=== PATIENT | female | born 1990 | race Caucasian/White ===

== ENCOUNTER 2022-08-21 22:37 | Day surgery (SDC) | payer OTHER ==
[2022-08-21 22:59] VITALS: BMI 39.1
== END 2022-08-22 01:18 | disposition home or self-care (01) ==
LOC: CSHLD/OP 22:37
PROVIDERS: ATTEND Family Medicine
DX: O47.1 False labor at or after 37 completed weeks of gestation (principal); Z79.899 Other long term (current) drug therapy; Z88.8 Allergy status to other drugs, medicaments and biological substances; Z3A.38 38 weeks gestation of pregnancy
CPT/HCPCS: 99283

== ENCOUNTER 2022-08-23 08:44 | Inpatient (IN) | payer OTHER ==
[~2022-08-23 08:44] MED LIST: Bupivacaine 0.25% HCL 30 ML VIAL ONE
[2022-08-23] MEDS ORDERED: Carboprost 250 MCG/ML AMP IM PRN (09:56)
[2022-08-23] MEDS ORDERED: HYDROcodone/Acetaminophen 5/325 mg Tablet PO PRN ×3 (09:56→20:50)
[2022-08-23] MEDS ORDERED: Misoprostol 200 MCG TAB PR PRN (09:56)
[2022-08-23] MEDS ORDERED: Methylergonovine 0.2 MG/ML VIAL IM PRN (09:56)
[2022-08-23] MEDS ORDERED: Ibuprofen 800 MG TAB PO PRN (09:56)
[2022-08-23] MEDS ORDERED: Diphenoxylate HCl/Atropine Tablet PO PRN (09:56)
[2022-08-23] MEDS ORDERED: hydrALAZINE 20 MG/ML VIAL SLOW IVP PRN ×2 (09:56→20:50)
[2022-08-23] MEDS ORDERED: Promethazine HCl 25 MG/ML VIAL IM PRN ×3 (09:56→20:50)
[2022-08-23] MEDS ORDERED: Butorphanol Tartrate 1 MG/ML VIAL SLOW IVP PRN (09:56)
[2022-08-23] MEDS ORDERED: Lidocaine 1% (PF) 30 ML VIAL SC PRN (09:56)
[2022-08-23] MEDS ORDERED: Acetaminophen 500 MG TAB PO PRN (09:56)
[2022-08-23] MEDS ORDERED: Ondansetron PF 4 MG/2 ML Vial IVP PRN ×3 (09:56→20:50)
[2022-08-23] MEDS ORDERED: NS w/ Oxytocin 30 units 500 ML IV SCH ×3 (10:00→20:50)
[2022-08-23 10:29] VITALS: BMI 39.1
[2022-08-23] MEDS: Lactated Ringer's 1,000 ML IV SCH ×3 (10:39→22:05)
[2022-08-23 11:11] LABS: Hemoglobin 11.4 g/dL (12.0-15.5); Mean Corpuscular HGB CONC 33.5 g/dL (32.0-36.0); Mean Corpuscular Hemoglobin 28.1 pg (27.0-33.0); Mean Platelet Volume 10.1 fl (7.4-10.4); Platelet Count 356 10x3/uL (150-450); RBC Distribution Width 13.2 % (11.5-14.5); Red Blood Cell (RBC) Count 4.05 10x6/uL (3.90-5.03); White Blood Cell (WBC) Count 21.1 10x3/uL (3.5-10.5)
[2022-08-23] MEDS ORDERED: Fentanyl 2 mcg/Bup 0.1% Cadd 100 ML ONE ×2 (11:26→17:37)
[2022-08-23] MEDS: Fentanyl 2 mcg/Bupivacaine 0.1% Cassette 100 ML EPIDURAL SCH ×2 (11:50→17:38)
[2022-08-23] MEDS ORDERED: diphenhydrAMINE 50 MG/ML VIAL IVP PRN (11:51)
[2022-08-23] MEDS ORDERED: Acetaminophen 325 MG TAB PO PRN (11:51)
[2022-08-23] MEDS ORDERED: Naloxone HCl 0.4 mg/ml Vial IVP PRN ×2 (11:51)
[2022-08-23] MEDS ORDERED: ePHEDrine Sulfate 50 MG/10 ML VIAL SLOW IVP PRN (11:51)
[2022-08-23] MEDS ORDERED: Moisturizing Cream (Eucerin) 113 GM JAR TOP PRN (11:51)
[2022-08-23] MEDS ORDERED: Lactated Ringer's 500 ML IV PRN (11:51)
[2022-08-23 11:57] LABS: SARS-CoV-2 NAA Rapid Test Not Detected (NotDetected)
[2022-08-23 11:59] LABS: HBSAg Index 0.14 S/CO (0-0.99); Hep B Surf Ag Non-Reactive S/CO (NonReactive)
[2022-08-23] MEDS ORDERED: Communication Order-Pharmacy FS SCH (12:00)
[2022-08-23 12:04] LABS: Syphilis Antibody Nonreactive (Nonreactive); Syphilis Antibody Index 0.11 S/CO (<1.00 Non-Reactive)
[2022-08-23] MEDS ORDERED: Benzocaine-Menthol 82.5 ML CAN TOP PRN (20:50)
[2022-08-23] MEDS ORDERED: Bisacodyl 10 MG SUPP PR PRN (20:50)
[2022-08-23] MEDS ORDERED: diphenhydrAMINE 25 MG CAP PO PRN (20:50)
[2022-08-23] MEDS ORDERED: Preparation H Ointment 28 GM TUBE PR PRN (20:50)
[2022-08-23] MEDS ORDERED: Lanolin Ointment 7 GM TUBE TOP PRN (20:50)
[2022-08-23] MEDS ORDERED: Boostrix 0.5 ML (Tdap) VIAL (>/=7 yrs of age) IM ONE (20:50)
[2022-08-23] MEDS ORDERED: Milk Of Magnesia 30 ML UDCUP PO PRN (20:50)
[2022-08-23] MEDS: Docusate 100 MG CAP PO SCH (21:28)
[2022-08-23] MEDS: Ibuprofen 800 MG TAB PO SCH (21:28)
[2022-08-24] MEDS: Ibuprofen 800 MG TAB PO SCH ×2 (05:22→13:39)
[2022-08-24] MEDS: Ferrous Sulfate 325 MG TAB PO SCH ×2 (07:37→17:47)
[2022-08-24] MEDS: Docusate 100 MG CAP PO SCH (08:44)
[2022-08-24] MEDS ORDERED: Prenatal Vitamin 1 TAB PO SCH (09:00)
[2022-08-24 17:52] VITALS: TEMP 98.8
[2022-08-24 20:13] VITALS: BP 113/66
== END 2022-08-24 20:20 | disposition home or self-care (01) | DRG 807 ==
LOC: CSHLD/OP 08:44 → CSHLD 09:56 → CSHPED 20:35
PROVIDERS: ADMIT Family Medicine; ATTEND Family Medicine
PROC: 10E0XZZ Delivery of Products of Conception, External Approach (ICD-10-PCS; principal; 2022-08-23)
DX: O80 Encounter for full-term uncomplicated delivery (principal); Z37.0 Single live birth; Z3A.38 38 weeks gestation of pregnancy; Z98.890 Other specified postprocedural states; Z83.3 Family history of diabetes mellitus; Z90.49 Acquired absence of other specified parts of digestive tract; Z88.8 Allergy status to other drugs, medicaments and biological substances; Z20.822 Contact with and (suspected) exposure to COVID-19
CPT/HCPCS: 36415; 51702; 85027; 86780; 86850; 86900; 86901; 87340; 99283; 99285; J2590; J7120; S0020; U0002

== ENCOUNTER 2023-10-31 09:03 | Outpatient (CLI) | payer OTHER | END 2023-10-31 09:04 | disposition home or self-care (01) | LOC: CSHULT 09:03 | PROVIDERS: ATTEND Nurse Practitioner Women's Health | DX: Z34.82 Encounter for supervision of other normal pregnancy, second trimester (principal); Z3A.20 20 weeks gestation of pregnancy | CPT/HCPCS: 76805 ==